=== PATIENT | female | born 2000 | race Caucasian/White ===

== ENCOUNTER 2022-06-01 08:56 | Emergency (ER) | payer MEDICAID, OTHER ==
[~2022-06-01] VITALS: Ht 162.6 cm; Wt 91.0 kg
[2022-06-01] MEDS: MAGNESIUM/ALUMINUM HYDROXIDE/SIMETHICONE 30ML UDC PO ONE ×2 (09:30→10:16)
[2022-06-01] MEDS ORDERED: PANTOPRAZOLE SODIUM 40 MG/VIAL IV ONE (09:30)
[2022-06-01] MEDS ORDERED: ONDANSETRON HCL 4MG/2ML INJ IV ONE (09:30)
[2022-06-01 10:23] LABS: HEMATOCRIT. 41.5 % (36.0-48.0); HEMOGLOBIN. 13.8 g/dL (12.0-16.0); MEAN CORPUSCULAR HEMOGLOBIN 30.3 pg (28.0-32.0); MEAN CORPUSCULAR VOLUME 91.2 fL (81.0-99.0); MEAN PLATELET VOLUME 7.3 fl (7.4-10.4); PLATELET 422 x1000/uL (130-400); RED BLOOD CELL COUNT 4.55 mill/uL (4.2-5.4); RED CELL DISTRIBUTION WIDTH 13.4 % (11.6-14.6)
[2022-06-01 10:33] LABS: PROTHROMBIN TIME 10.9 sec (9.6-11.0)
[2022-06-01 10:35] LABS: CHLORIDE 106 mEq/L (98-107)
[2022-06-01 10:38] LABS: HCG SCREEN NEGATIVE
[2022-06-01 10:54] LABS: PLATELET ESTIMATE SLIGHTLY INCREASED
[2022-06-01] MEDS ORDERED: PROCHLORPERAZINE 10MG/2ML VIAL IM NR (11:45)
[2022-06-01] MEDS ORDERED: SODIUM CHLORIDE 0.9% 1,000 ML IV ONE (11:45)
[2022-06-01 12:54] VITALS: BP 121/75
[2022-06-01] MEDS ORDERED: PROT40 MT (13:34)
[2022-06-01] MEDS ORDERED: COM10 MT (13:34)
== END 2022-06-01 14:16 | disposition home or self-care (01) ==
LOC: ER 09:14
DX: R10.13 Epigastric pain (principal); D72.829 Elevated white blood cell count, unspecified
CPT/HCPCS: 36415; 76705; 80053; 81025; 83690; 84703; 85025; 85610; 96361; 96372; 96374; 96375; 99284; C9113; J0780; J2405